=== PATIENT | female | born 1985 | race Caucasian/White ===

== ENCOUNTER 2024-01-15 11:10 | Emergency (ER) | payer OTHER ==
[~2024-01-15] VITALS: Ht 162.6 cm; Wt 70.3 kg
[2024-01-15] MEDS ORDERED: predniSONE 50 MG TABLET PO ONE (11:30)
[2024-01-15] MEDS ORDERED: LORATADINE 10 MG TABLET PO SCH (11:30)
[2024-01-15] MEDS ORDERED: LORATADINE 10 MG TABLET ONE (11:36)
[2024-01-15] MEDS ORDERED: predniSONE 20 MG TABLET ONE (11:36)
[2024-01-15] MEDS ORDERED: EPIN0.3P3 IM (11:44)
[2024-01-15] MEDS ORDERED: PRED20TA PO (11:44)
[2024-01-15] MEDS ORDERED: CLOT15CR5 TP (11:44)
[2024-01-15 12:03] VITALS: BP 110/68; TEMP 97.9; O2SAT 100
== END 2024-01-15 12:04 | disposition home or self-care (01) ==
LOC: ER 11:19
DX: R22.0 Localized swelling, mass and lump, head (principal); R21 Rash and other nonspecific skin eruption
CPT/HCPCS: 99283; J7512